=== PATIENT | female | born 1955 | race Caucasian/White ===

== ENCOUNTER → 2018-11-18 | Outpatient (CLI) | payer BC ==
--- NOTE | 2018-11-21 13:15 | XCELERA REPORT ---
[address] [address] Lower Extremity Venous Evaluation Procedure: A bilateral duplex scan of the lower extremity veins was performed. The evaluation included responses to compression and other maneuvers with patient in the supine and standing positions to assess venous insufficiency. Right Sided Venous Evaluation Deep venous system evaluation shows patent veins with no obstruction or significant reflux identified. Saphena Femoral junction: no reflux. Femoral vein reflux: no reflux. Greater Saphenous vein, Proximal thigh: reflux: no reflux. Greater Saphenous vein, Distal thigh: reflux: no reflux. Greater Saphenous vein, Proximal below knee: reflux: no reflux. One calf Perforators identified. 0.5 cms, no reflux. Left Sided Venous Evaluation Deep venous system evaluatiion shows patent veins with no obstruction or significant reflux identified. Sapheno Femoral junction: no reflux. Femoral vein reflux: no reflux. Greater Saphenous vein, Proximal thigh: reflux: no reflux. Greater Saphenous vein, Distal thigh: reflux: no reflux. Greater Saphenous vein, Proximal below knee: reflux: 1 second reflux.5.4 mm. No significant Perforators identified. Interpretation Summary No duplex evidence of DVT or obstruction in the bilateral lower extremities. No reflux, deep or superficial identified.. Name: ABIEL BELTRÁN Age: 63 yrs Gender: Female : 1955 Patient Status: Outpatient Patient Location: Study Date: 11/18/2018 11:04 AM Reason For Study: LT CALF ULCER Ordering Physician: PAM FAIRBANKS Performed By: Greg Arredondo : PAM FAIRBANKS > Carlo Arriaga
== END ==
LOC: SP 10:18
PROVIDERS: ATTEND Nurse Practitioner Family
DX: L97.222 Non-pressure chronic ulcer of left calf with fat layer exposed (principal)
CPT/HCPCS: 93925; 93970

== ENCOUNTER → 2018-12-02 | Outpatient (CLI) | payer BC ==
[2018-12-02 13:39] LABS: ABSOLUTE LYMPHOCYTES (AUTO) 0.7 10^3/uL (0.5-4.7); ABSOLUTE MONOCYTES (AUTO) 0.2 10^3/uL (0.1-1.4); ABSOLUTE NEUT (AUTO) 3.2 10^3/uL (1.7-8.2); BASOPHILS % (AUTO) 0.3 % (0-2); EOSINOPHILS % (AUTO) 0.6 % (0-6); HEMATOCRIT 42.5 % (36.0-47.0); HEMOGLOBIN 14.6 g/dL (12.0-15.5); MEAN CORPUSCULAR HEMOGLOBIN 33.7 pg (27.0-33.4); MEAN CORPUSCULAR HGB CONC 34.2 g/dL (32.0-36.0); MEAN CORPUSCULAR VOLUME 99 fl (80-97); MONOCYTES % (AUTO) 3.9 % (3-13); PLATELET COUNT 180 10^3/uL (150-450); RED BLOOD COUNT 4.32 10^6/uL (3.72-5.28); RED CELL DISTRIBUTION WIDTH 14.1 % (11.5-14.0); SEGMENTED NEUTROPHILS % (AUTO) 78.2 % (42-78); TOTAL CELLS COUNTED % (AUTO) 100 %; WHITE BLOOD COUNT 4.1 10^3/uL (4.0-10.5)
[2018-12-02 14:15] LABS: ALANINE AMINOTRANSFERASE 32 U/L (9-52); ALBUMIN 3.4 g/dL (3.5-5.0); ALKALINE PHOSPHATASE 261 U/L (38-126); ANION GAP 7 (5-19); ASPARTATE AMINO TRANSFERASE 69 U/L (14-36); BILIRUBIN,TOTAL 2.1 mg/dL (0.2-1.3); BLOOD UREA NITROGEN 20 mg/dL (7-20); C-REACTIVE PROTEIN 6.5 mg/L (<10.0); CALCIUM 8.8 mg/dL (8.4-10.2); CARBON DIOXIDE 28 mmol/L (22-30); CHLORIDE 105 mmol/L (98-107); GLUCOSE 128 mg/dL (75-110); POTASSIUM 4.6 mmol/L (3.6-5.0); SODIUM 140.4 mmol/L (137-145); TOTAL PROTEIN 8.9 g/dL (6.3-8.2)
[2018-12-02 14:23] LABS: ERYTHROCYTE SEDIMENTATION RATE 34 mm/hr (0-30)
== END ==
LOC: WC 12:38
PROVIDERS: ATTEND Nurse Practitioner Family
DX: L97.222 Non-pressure chronic ulcer of left calf with fat layer exposed (principal)
CPT/HCPCS: 36415; 80053; 85025; 85652; 86140

== ENCOUNTER → 2018-12-26 | Outpatient (CLI) | payer BC ==
[2018-12-26 12:56] LABS: ABSOLUTE EOSINOPHILS # (AUTO) 0.1 10^3/uL (0.0-0.6); ABSOLUTE LYMPHOCYTES (AUTO) 1.1 10^3/uL (0.5-4.7); ABSOLUTE MONOCYTES (AUTO) 0.5 10^3/uL (0.1-1.4); ABSOLUTE NEUT (AUTO) 3.4 10^3/uL (1.7-8.2); BASOPHILS % (AUTO) 0.7 % (0-2); EOSINOPHILS % (AUTO) 1.7 % (0-6); HEMATOCRIT 42.1 % (36.0-47.0); HEMOGLOBIN 14.4 g/dL (12.0-15.5); MEAN CORPUSCULAR HEMOGLOBIN 33.5 pg (27.0-33.4); MEAN CORPUSCULAR HGB CONC 34.3 g/dL (32.0-36.0); MEAN CORPUSCULAR VOLUME 98 fl (80-97); MONOCYTES % (AUTO) 9.3 % (3-13); PLATELET COUNT 149 10^3/uL (150-450); RED BLOOD COUNT 4.31 10^6/uL (3.72-5.28); RED CELL DISTRIBUTION WIDTH 13.5 % (11.5-14.0); SEGMENTED NEUTROPHILS % (AUTO) 66.3 % (42-78); TOTAL CELLS COUNTED % (AUTO) 100 %; WHITE BLOOD COUNT 5.1 10^3/uL (4.0-10.5)
[2018-12-26 13:21] LABS: ALANINE AMINOTRANSFERASE 48 U/L (9-52); ALBUMIN 3.3 g/dL (3.5-5.0); ALKALINE PHOSPHATASE 219 U/L (38-126); ANION GAP 8 (5-19); ASPARTATE AMINO TRANSFERASE 86 U/L (14-36); BILIRUBIN,TOTAL 2.3 mg/dL (0.2-1.3); BLOOD UREA NITROGEN 15 mg/dL (7-20); C-REACTIVE PROTEIN 9.9 mg/L (<10.0); CALCIUM 8.9 mg/dL (8.4-10.2); CARBON DIOXIDE 27 mmol/L (22-30); CHLORIDE 109 mmol/L (98-107); GLUCOSE 106 mg/dL (75-110); POTASSIUM 3.6 mmol/L (3.6-5.0); SODIUM 143.6 mmol/L (137-145); TOTAL PROTEIN 7.9 g/dL (6.3-8.2)
[2018-12-26 13:41] LABS: ERYTHROCYTE SEDIMENTATION RATE 26 mm/hr (0-30)
--- NOTE | 2018-12-26 15:21 | RADIOLOGY REPORT (SQ) ---
EXAM DESCRIPTION: TIBIA FIBULA LEFT COMPLETED DATE/TIME: 12/26/2018 12:57 pm REASON FOR STUDY: NON-PRESSURE CHRONIC ULCER OF LEFT CALF W FAT LAYER EXPOSED L97.222 NON-PRESSURE CHRONIC ULCER OF LEFT CALF W FAT LAYER I87.2 VENOUS INSUFFICIENCY (CHRONIC) (PERIPHERAL) COMPARISON: None. NUMBER OF VIEWS: Two views. TECHNIQUE: Two radiographic images acquired of the left tibia and fibula to include the knee and ank le in at least one projection. LIMITATIONS: None. FINDINGS: MINERALIZATION: Osteopenia. BONES: No acute fracture or dislocation. No worrisome bone lesions. SOFT TISSUES: There are vascular calcifications. No foreign body. OTHER: No other significant finding. IMPRESSION: No evidence of osteomyelitis. TECHNICAL DOCUMENTATION: JOB ID: [id number] [employer]- All Rights Reserved Reading location - IP/workstation name: [email or web address]
== END ==
LOC: WC 12:23
PROVIDERS: ATTEND Nurse Practitioner Family
DX: L97.222 Non-pressure chronic ulcer of left calf with fat layer exposed (principal); I87.2 Venous insufficiency (chronic) (peripheral)
CPT/HCPCS: 36415; 80053; 85025; 85652; 86140

== ENCOUNTER 2019-02-27 12:33 | Emergency (ER) | payer OTHER ==
--- NOTE | 2019-02-27 13:45 | ER Document Report ---
ED Medical Screen (RME) - General Chief Complaint: Leg Pain Stated Complaint: LEG WOUND Time Seen by Provider: 02/27/19 13:39 Primary Care Provider: CRISTINA DENNY PA-C [Primary Care Provider] - Follow up as needed TRAVEL OUTSIDE OF THE [place] IN LAST 30 DAYS: No - HPI Notes: 02/27/19 13:42 Patient is a 63-year-old female with history of venous stasis who presents complaining of issues with her chronic wounds left lower leg. Patient states that other areas are starting to open up is not sure if her wounds are healing appropriately. Patient states that she has been unable to follow-up with wound clinic due to insurance issues and has been going to the [facility]. She had another appointment recently, but had to reschedule due to provider going into labor. Patient states that she continues to have discharge and drainage associated. She has been doing daily dressing changes otherwise. Denies drug allergies. Denies MCCLAIN, fever, neck pain, URI, CP, SOB, Abd pain, dysuria, back pain. I have treated and performed a rapid initial assessment of this patient. A comprehensive ED assessment and evaluation of the patient, analysis of test results and completion of medical decision making process will be conducted by additional ED providers. PHYSICAL EXAMINATION: GENERAL: Well-appearing, well-nourished and in no acute distress. A&Ox4. Answers questions appropriately. Extremities: multiple open wounds left lower leg, some with mild erythema. + primarily serosanguineous discharge. 1+ pitting edema. Pulses 2+. N/V intact distal otherwise. NEUROLOGICAL: Normal speech, normal gait. PSYCH: Normal mood, normal affect. - Related Data Allergies/Adverse Reactions: No Known Allergies Allergy (Unverified 02/27/19 12:34) Past Medical History Past Surgical History: Reports: Hx Orthopedic Surgery - hip - Immunizations Hx Diphtheria, Pertussis, Tetanus Vaccination: Yes Physical Exam - Vital signs Vitals: Temp Pulse Resp BP Pulse Ox 98.5 F 83 16 121/67 94 02/27/19 12:39 02/27/19 12:39 02/27/19 12:39 02/27/19 12:39 02/27/19 12:39 Course - Vital Signs Vital signs: Temp Pulse Resp BP Pulse Ox 98.5 F 83 16 121/67 94 02/27/19 12:39 02/27/19 12:39 02/27/19 12:39 02/27/19 12:39 02/27/19 12:39 Doctor's Discharge - Discharge Referrals: CRISTINA DENNY PA-C [Primary Care Provider] - Follow up as needed
[2019-02-27 14:25] LABS: ABSOLUTE EOSINOPHILS # (AUTO) 0.3 10^3/uL (0.0-0.6); ABSOLUTE MONOCYTES (AUTO) 0.5 10^3/uL (0.1-1.4); SEGMENTED NEUTROPHILS % (AUTO) 61.1 % (42-78); TOTAL CELLS COUNTED % (AUTO) 100 %
[2019-02-27 14:30] LABS: ABSOLUTE NEUT (AUTO) 2.9 10^3/uL (1.7-8.2); BASOPHILS % (AUTO) 0.6 % (0-2); EOSINOPHILS % (AUTO) 6.9 % (0-6); HEMATOCRIT 41.3 % (36.0-47.0); LYMPHOCYTES % (AUTO) 21.7 % (13-45); MEAN CORPUSCULAR HEMOGLOBIN 32.7 pg (27.0-33.4); MEAN CORPUSCULAR HGB CONC 33.8 g/dL (32.0-36.0); MEAN CORPUSCULAR VOLUME 97 fl (80-97); MONOCYTES % (AUTO) 9.7 % (3-13); PLATELET COUNT 138 10^3/uL (150-450); RED BLOOD COUNT 4.26 10^6/uL (3.72-5.28); RED CELL DISTRIBUTION WIDTH 14.3 % (11.5-14.0); WHITE BLOOD COUNT 4.7 10^3/uL (4.0-10.5)
--- NOTE | 2019-02-27 14:41 | RADIOLOGY REPORT (SQ) ---
EXAM DESCRIPTION: TIBIA FIBULA LEFT COMPLETED DATE/TIME: 02/27/2019 2:29 pm REASON FOR STUDY: chronic wounds left lower leg COMPARISON: Left tibia and fibula 12/26/2018 NUMBER OF VIEWS: Two views. TECHNIQUE: Two radiographic images acquired of the left tibia and fibula to include the knee and ank le in at least one projection. LIMITATIONS: None. FINDINGS: MINERALIZATION: Osteopenic BONES: No acute fracture or dislocation. No worrisome bone lesions. SOFT TISSUES: No radiopaque foreign body. No worrisome soft tissue gas. There are superficial skin ulcers along the lower 3rd of the left lower leg. OTHER: No other significant finding. IMPRESSION: Soft tissue ulcers over the lower 3rd of the left lower leg. No retained radiopaque for eign body. No soft tissue gas. No underlying aggressive bony demineralization worrisome for osteomy jhonathan TECHNICAL DOCUMENTATION: JOB ID: [id number] [employer]- All Rights Reserved Reading location - IP/workstation name: [email or web address]
[2019-02-27 14:44] LABS: ALBUMIN 3.2 g/dL (3.5-5.0); ALKALINE PHOSPHATASE 165 U/L (38-126); ASPARTATE AMINO TRANSFERASE 92 U/L (14-36); BILIRUBIN,DIRECT 0.7 mg/dL (0.0-0.4); BILIRUBIN,TOTAL 1.9 mg/dL (0.2-1.3); BLOOD UREA NITROGEN 14 mg/dL (7-20); CALCIUM 8.6 mg/dL (8.4-10.2); CARBON DIOXIDE 32 mmol/L (22-30); CHLORIDE 106 mmol/L (98-107); GLUCOSE 93 mg/dL (75-110); POTASSIUM 4.5 mmol/L (3.6-5.0); TOTAL PROTEIN 8.1 g/dL (6.3-8.2)
[2019-02-27 14:45] LABS: ANION GAP 2 (5-19)
--- NOTE | 2019-02-27 15:18 | ER Document Report ---
ED General - General Chief Complaint: Leg Pain Stated Complaint: LEG WOUND Time Seen by Provider: 02/27/19 13:39 Primary Care Provider: [facility] [NO LOCAL MD] - Follow up in 3-5 days CRISTINA DENNY PA-C [NO LOCAL MD] - Follow up as needed Mode of Arrival: Ambulatory Information source: Patient, [facility] Records Notes: Patient is a 63-year-old female with history of venous stasis who presents complaining of issues with her chronic wounds left lower leg. Patient states that other areas are starting to open up is not sure if her wounds are healing appropriately. Patient states that she has been unable to follow-up with wound clinic due to insurance issues and has been going to the [facility]. She had another appointment recently, but had to reschedule due to provider going into labor. Patient states that she continues to have discharge and drainage associated. She has been doing daily dressing changes otherwise. Denies drug allergies. Denies MCCLAIN, fever, neck pain, URI, CP, SOB, Abd pain, dysuria, back pain. TRAVEL OUTSIDE OF THE [place] IN LAST 30 DAYS: No - HPI Onset: Other Onset/Duration: Gradual, Persistent Quality of pain: No pain Severity: None Pain Level: Denies Associated symptoms: denies: Chills, Fever, Nausea, Vomiting, Shortness of breath Exacerbated by: Denies Relieved by: Denies Similar symptoms previously: Yes Recently seen / treated by doctor: Yes - Related Data Allergies/Adverse Reactions: No Known Allergies Allergy (Unverified 02/27/19 12:34) Past Medical History - General Information source: Patient - Social History Smoking Status: Current Every Day Smoker Cigarette use (# per day): Yes - 10 Smoking Education Provided: Yes - Smoking cessation counseling was provided for 4 minutes at the bedside Frequency of alcohol use: None Lives with: Family, Spouse/Significant other Family History: Reviewed & Not Pertinent Patient has suicidal ideation: No Patient has homicidal ideation: No Renal/ Medical History: Denies: Hx Peritoneal Dialysis Past Surgical History: Reports: Hx Orthopedic Surgery - hip - Immunizations Hx Diphtheria, Pertussis, Tetanus Vaccination: Yes Review of Systems - Review of Systems Notes: REVIEW OF SYSTEMS: CONSTITUTIONAL : Denies fever, chills, or sweats. Denies recent illness. Denies weight loss, recent hospitalizations. EENT: Denies visual changes, eye pain. Denies sore throat, oral lesions, difficulty swallowing. CARDIOVASCULAR: Denies chest pain. Denies palpitations. Denies lower extremity edema. RESPIRATORY: Denies cough. Denies shortness of breath, wheezing. GASTROINTESTINAL: Denies abdominal pain or distention. Denies nausea, vomiting, or diarrhea. Denies blood in vomitus, stools, or per rectum. Denies black, tarry stools. Denies constipation. GENITOURINARY: Denies difficulty urinating, painful urination, frequency, blood in urine, or vaginal discharge. MUSCULOSKELETAL: Denies back or neck pain or stiffness. Denies joint pain or swelling. SKIN: + Multiple wounds to the left lower extremity. HEMATOLOGIC : Denies easy bruising or bleeding. LYMPHATIC: Denies swollen glands. NEUROLOGICAL: Denies confusion or altered mental status. Denies loss of consciousness. Denies dizziness or lightheadedness. Denies headache. Denies weakness or paralysis. Denies problems difficulty with ambulation, slurred speech. Denies sensory loss, numbness, or tingling. Denies seizures. PSYCHIATRIC: Denies anxiety or stress. Denies depression, suicidal ideation, or homicidal ideation. Denies visual or auditory hallucinations. Physical Exam - Vital signs Vitals: Temp Pulse Resp BP Pulse Ox 98.5 F 83 16 121/67 94 02/27/19 12:39 02/27/19 12:39 02/27/19 12:39 02/27/19 12:39 02/27/19 12:39 - Notes Notes: PHYSICAL EXAMINATION: GENERAL: Well-appearing, well-nourished and in no acute distress. HEAD: Atraumatic, normocephalic. EYES: Pupils equal round and reactive to light, extraocular movements intact, conjunctiva are normal. ENT: Nares patent, oropharynx clear without exudates. Moist mucous membranes. NECK: Normal range of motion, supple without lymphadenopathy LUNGS: Breath sounds clear to auscultation bilaterally and equal. No wheezes rales or rhonchi. HEART: Regular rate and rhythm without murmurs. Pulses intact throughout. ABDOMEN: Soft, nontender, nondistended abdomen. No guarding, no rebound. No masses appreciated. Female : deferred Musculoskeletal: Normal range of motion, no pitting or edema. No cyanosis. NEUROLOGICAL: Cranial nerves grossly intact. Normal speech, normal gait. Normal sensory, motor exams PSYCH: Normal mood, normal affect. SKIN: Left lower extremity with multiple open wounds. No purulent drainage, tenderness. Multiple wounds with granulation tissue. No foul-smelling discharge. Course - Re-evaluation Re-evalutation: Laboratory 02/27/19 02/27/19 14:15 14:15 WBC 4.7 RBC 4.26 Hgb 14.0 Hct 41.3 MCV 97 MCH 32.7 MCHC 33.8 RDW 14.3 H Plt Count 138 L Seg Neutrophils % 61.1 Lymphocytes % 21.7 Monocytes % 9.7 Eosinophils % 6.9 H Basophils % 0.6 Absolute Neutrophils 2.9 Absolute Lymphocytes 1.0 Absolute Monocytes 0.5 Absolute Eosinophils 0.3 Absolute Basophils 0.0 Sodium 140.1 Potassium 4.5 Chloride 106 Carbon Dioxide 32 H Anion Gap 2 L BUN 14 Creatinine 0.65 Est GFR ( Amer) > 60 Est GFR (Non-Af Amer) > 60 Glucose 93 Calcium 8.6 Total Bilirubin 1.9 H Direct Bilirubin 0.7 H Neonat Total Bilirubin Not Reportable Neonat Direct Bilirubin Not Reportable Neonat Indirect Bili Not Reportable AST 92 H ALT 41 Alkaline Phosphatase 165 H Total Protein 8.1 Albumin 3.2 L Tibia/Fibula X-Ray 02/27/19 13:42 IMPRESSION: Soft tissue ulcers over the lower 3rd of the left lower leg. No retained radiopaque foreign body. No soft tissue gas. No underlying aggressive bony demineralization worrisome for osteomyelitis Temp Pulse Resp BP Pulse Ox 98.5 F 83 16 121/67 94 02/27/19 12:39 02/27/19 12:39 02/27/19 12:39 02/27/19 12:39 02/27/19 12:39 02/27/19 15:19 63-year-old female with chronic venous stasis wounds to the left lower extremity presents with concern for worsening. Vital signs reviewed and within normal limits. Patient is afebrile, normotensive and in no acute distress. She does not appear toxic or dehydrated. Left lower extremity is significant for multiple ulcerations without associated erythema, purulent discharge. Patient's wounds were cleaned and dressed. She does state that she has an upcoming appointment with wound care in 1 week. Patient strongly advised to keep this appointment. Patient was discharged home in stable condition. Patient was evaluated and treated as appropriate for the patient's presenting symptoms and complaint, with consideration of any critical or life threatening conditions that may be associated with their obtained history and exam as noted above. All results were discussed with patient. Patient provided the opportunity to ask questions, and express concerns. Patient was educated on treatments based on their presumed diagnosis as noted above. At this time we will discharge the patient with return precautions and follow-up recommendations. Verbal discharge instructions given a the bedside. Medication warnings reviewed. Patient is in agreement with this plan and has verbalized understanding of return precautions. After careful consideration I feel that that patient can be safely discharged from the emergency department, they were advised to followup with a primary c are physician in 2-3 days. Dictation on this chart was performed using voice recognition software and may result in unintended grammatical, spelling, syntax or errors. - Vital Signs Vital signs: Temp Pulse Resp BP Pulse Ox 98.8 F 91 18 151/87 H 97 02/27/19 15:59 02/27/19 15:59 02/27/19 15:59 02/27/19 15:59 02/27/19 15:59 - Laboratory Result Diagrams: 02/27/19 14:15 02/27/19 14:15 Laboratory results interpreted by me: 02/27/19 02/27/19 14:15 14:15 RDW 14.3 H Plt Count 138 L Eosinophils % 6.9 H Carbon Dioxide 32 H Anion Gap 2 L Total Bilirubin 1.9 H Direct Bilirubin 0.7 H AST 92 H Alkaline Phosphatase 165 H Albumin 3.2 L - Diagnostic Test Radiology reviewed: Image reviewed, Reports reviewed Discharge - Discharge Clinical Impression: Venous stasis, Tobacco use disorder Wound of lower extremity Qualifiers: Encounter type: initial encounter Laterality: left Qualified Code(s): S81.802A - Unspecified open wound, left lower leg, initial encounter Condition: Good Disposition: HOME, SELF-CARE Instructions: Dressing Instructions for Open Wounds ([facility]) Additional Instructions: Follow up with your [id number] hours for further care or return to the ED IMMEDIATELY if symptoms worsen or you have any concerns. If you cannot afford to follow up with your primary care physician a list of low cost clinics have been provided at the end of your discharge papers as well. Most prescribed medications have multiple side effects. The safest thing to do is when filling your prescription speak to your pharmacist regarding possible interactions with your normal home medications and over the counter medications such as Ibuprofen, Tylenol, Benadryl. If you experience any symptoms that cause you discomfort or concern you should discontinue the medication immediately and return to the emergency room or call your primary care physician. Prescriptions: Sulfamethoxazole/Trimethoprim [Bactrim Ds Tablet] 1 each PO BID 7 Days #14 tablet Referrals: CRISTINA DENNY PA-C [NO LOCAL MD] - [facility] - Follow up in 3-5 days
[2019-02-27] MEDS ORDERED: SULFAMETHOXAZOLE/TRIMETHOPRIM 800-160 MG TABLET PO ONE (15:24)
[2019-02-27 16:00] VITALS: BP 151/87
[2019-02-27] MEDS ORDERED: HYDROCODONE/ACETAMINOPHEN 5-325 MG (6 TAB/ER DISP) PO PRN (16:03)
== END 2019-02-27 16:10 | disposition home or self-care (01) ==
LOC: ER 12:33
DX: I87.8 Other specified disorders of veins (principal); S81.802A Unspecified open wound, left lower leg, initial encounter; L08.9 Local infection of the skin and subcutaneous tissue, unspecified; F17.210 Nicotine dependence, cigarettes, uncomplicated; X58.XXXA Exposure to other specified factors, initial encounter
CPT/HCPCS: 36415; 80053; 85025; 99283; 99406

== ENCOUNTER → 2019-05-05 | Outpatient (CLI) | payer OTHER ==
--- NOTE | 2019-05-05 13:10 | RADIOLOGY REPORT (SQ) ---
EXAM DESCRIPTION: TIBIA FIBULA LEFT COMPLETED DATE/TIME: 05/05/2019 12:57 pm REASON FOR STUDY: NON-PRS CHRONIC ULCER OTH PRT LEFT FOOT W FAT LAYER EXPOSED L97.522 NON-PRS CHRON IC ULCER OTH PRT LEFT FOOT W FAT LAYER I87.312 CHRONIC VENOUS HYPERTENSION W ULCER OF L LOW EXTREM COMPARISON: 02/27/2019 NUMBER OF VIEWS: Two views. TECHNIQUE: Two radiographic images acquired of the left tibia and fibula to include the knee and ank le in at least one projection. LIMITATIONS: None. FINDINGS: MINERALIZATION: Normal. BONES: No acute fracture, erosions or destruction of bone. Plantar calcaneal spur. SOFT TISSUES: External bandage dressing anterior left lower extremity. The patient has a known hist ory of superficial skin ulcers along the lower third of the left lower extremity. OTHER: Degenerative changes at the knee, stable findings. IMPRESSION: 1. No significant interval changes since the prior examination dated 02/27/2019. No acut e osseous findings. TECHNICAL DOCUMENTATION: JOB ID: [id number] [employer]- All Rights Reserved Reading location - IP/workstation name: [email or web address]
[2019-05-05 13:30] LABS: ABSOLUTE EOSINOPHILS # (AUTO) 0.2 10^3/uL (0.0-0.6); ABSOLUTE LYMPHOCYTES (AUTO) 1.3 10^3/uL (0.5-4.7); ABSOLUTE MONOCYTES (AUTO) 0.6 10^3/uL (0.1-1.4); ABSOLUTE NEUT (AUTO) 3.7 10^3/uL (1.7-8.2); BASOPHILS % (AUTO) 0.7 % (0-2); EOSINOPHILS % (AUTO) 3.7 % (0-6); HEMATOCRIT 41.1 % (36.0-47.0); HEMOGLOBIN 13.9 g/dL (12.0-15.5); LYMPHOCYTES % (AUTO) 21.6 % (13-45); MEAN CORPUSCULAR HEMOGLOBIN 32.9 pg (27.0-33.4); MEAN CORPUSCULAR HGB CONC 33.9 g/dL (32.0-36.0); MEAN CORPUSCULAR VOLUME 97 fl (80-97); MONOCYTES % (AUTO) 10.5 % (3-13); PLATELET COUNT 119 10^3/uL (150-450); RED BLOOD COUNT 4.24 10^6/uL (3.72-5.28); RED CELL DISTRIBUTION WIDTH 14.2 % (11.5-14.0); SEGMENTED NEUTROPHILS % (AUTO) 63.5 % (42-78); TOTAL CELLS COUNTED % (AUTO) 100 %; WHITE BLOOD COUNT 5.8 10^3/uL (4.0-10.5)
[2019-05-05 13:57] LABS: ALBUMIN 3.5 g/dL (3.5-5.0); ALKALINE PHOSPHATASE 199 U/L (38-126); ANION GAP 5 (5-19); ASPARTATE AMINO TRANSFERASE 88 U/L (14-36); BILIRUBIN,DIRECT 0.9 mg/dL (0.0-0.4); BILIRUBIN,TOTAL 2.4 mg/dL (0.2-1.3); BLOOD UREA NITROGEN 22 mg/dL (7-20); CALCIUM 8.9 mg/dL (8.4-10.2); CARBON DIOXIDE 31 mmol/L (22-30); CHLORIDE 103 mmol/L (98-107); GLUCOSE 87 mg/dL (75-110); POTASSIUM 3.9 mmol/L (3.6-5.0); TOTAL PROTEIN 8.9 g/dL (6.3-8.2)
[2019-05-05 14:01] LABS: C-REACTIVE PROTEIN < 5.0 mg/L (<10.0)
[2019-05-05 14:10] LABS: ERYTHROCYTE SEDIMENTATION RATE 27 mm/hr (0-30)
== END ==
LOC: WC 12:29
PROVIDERS: ATTEND Nurse Practitioner Family
DX: I87.312 Chronic venous hypertension (idiopathic) with ulcer of left lower extremity (principal); L97.522 Non-pressure chronic ulcer of other part of left foot with fat layer exposed
CPT/HCPCS: 36415; 80053; 85025; 85652; 86140

== ENCOUNTER 2019-12-07 18:14 | Emergency (ER) | payer MEDICARE, OTHER ==
--- NOTE | 2019-12-07 19:30 | RADIOLOGY REPORT (SQ) ---
EXAM DESCRIPTION: HIP LEFT AP/LATERAL IMAGES COMPLETED DATE/TIME: 12/07/2019 6:06 pm REASON FOR STUDY: fall last month, pain with ambulation, hx replacement COMPARISON: None. NUMBER OF VIEWS: Two views. TECHNIQUE: AP pelvis and additional frog-leg view of the left hip. LIMITATIONS: None. FINDINGS: MINERALIZATION: Osteopenia. LEFT HIP: Left hip arthroplasty with components in good alignment. No evidence of hardware fracture, loosening or subsidence. RIGHT HIP: No fracture or dislocation. No worrisome bone lesions. PUBIS AND ISCHIUM: No fracture. PELVIS: No fracture. SACRUM: No fracture or dislocation. No worrisome bone lesions. LOWER LUMBAR SPINE: Spondylosis and degenerative disc disease. SOFT TISSUES: No findings. OTHER: No other significant finding. IMPRESSION: Left hip arthroplasty without evidence of hardware complication. No acute fracture or d islocation. Moderate osteopenia. TECHNICAL DOCUMENTATION: JOB ID: [id number] [employer]- All Rights Reserved Reading location - IP/workstation name: [email or web address]
--- NOTE | 2019-12-07 19:31 | RADIOLOGY REPORT (SQ) ---
EXAM DESCRIPTION: KNEE LEFT 4 VIEW IMAGES COMPLETED DATE/TIME: 12/07/2019 6:06 pm REASON FOR STUDY: fall last month, pain with ambulation COMPARISON: None. NUMBER OF VIEWS: Four views. TECHNIQUE: AP, lateral, and both oblique radiographic images acquired of the left knee. LIMITATIONS: None. FINDINGS: MINERALIZATION: Osteopenia. BONES: No acute fracture or cortical disruption. Marginal osteophytes, subchondral sclerosis and cys tic change at all 3 compartments. No lytic or blastic bone lesion. JOINT: No intra-articular loose body or chondrocalcinosis. No joint effusion. SOFT TISSUES: No soft tissue swelling. No radio-opaque foreign body. OTHER: No other significant finding. IMPRESSION: No acute fracture or dislocation of the left knee. Moderate to severe tricompartmental osteoarthritis. TECHNICAL DOCUMENTATION: JOB ID: [id number] [employer]- All Rights Reserved Reading location - IP/workstation name: [email or web address]
[2019-12-07] MEDS ORDERED: ACETAMINOPHEN 325 MG TABLET PO ONE (20:51)
--- NOTE | 2019-12-07 20:54 | ER Document Report ---
HPI - HPI Time Seen by Provider: 12/07/19 20:05 Pain Level: 3 Context: Patient is a 64-year-old female presents emergency department with a chief complaint of left knee and hip pain. About a month ago, the patient ended up falling. According to the patient, she sustained a mechanical fall and slipped on a rug. Patient had been drinking alcohol today, according to the nurses note. Patient has history of a left hip replacement. Patient uses a cane to walk. She has not seen an orthopedic doctor or a regular doctor. Patient has history of DVTs and venous stasis ulcers in the past. Denies any calf pain. Only states the pain is in the joint. Patient states that she goes to the wound clinic for her's venous stasis ulcers which are healing well. Denies any shortness of breath or difficulty breathing. - ROS Systems Reviewed and Negative: Yes All other systems reviewed and negative - CONSTITUTIONAL Constitutional: DENIES: Fever, Chills - CARDIOVASCULAR Cardiovascular: DENIES: Chest pain - RESPIRATORY Respiratory: DENIES: Trouble Breathing, Coughing - GASTROINTESTINAL Gastrointestinal: DENIES: Abdominal Pain, Nausea, Patient vomiting - REPRODUCTIVE Reproductive: DENIES: : - MUSCULOSKELETAL Musculoskeletal: REPORTS: Extremity pain - Left hip, left knee - DERM Skin Color: Normal Skin Problems: None Past Medical History - General Information source: Patient - Social History Smoking Status: Current Every Day Smoker Chew tobacco use (# tins/day): No Frequency of alcohol use: Heavy Drug Abuse: None Family History: Reviewed & Not Pertinent Patient has homicidal ideation: No Renal/ Medical History: Denies: Hx Peritoneal Dialysis Past Surgical History: Reports: Hx Orthopedic Surgery - left hip x2 replacement - Immunizations Hx Diphtheria, Pertussis, Tetanus Vaccination: Yes Vertical Provider Document - CONSTITUTIONAL Agree With Documented VS: Yes Exam Limitations: No Limitations General Appearance: No Apparent Distress, Other - Disheveled - INFECTION CONTROL TRAVEL OUTSIDE OF THE [place] IN LAST 30 DAYS: No - HEENT HEENT: Atraumatic, Normocephalic, PERRLA - NECK Neck: Normal Inspection - RESPIRATORY Respiratory: Breath Sounds Normal, No Respiratory Distress - CARDIOVASCULAR Cardiovascular: Regular Rate, Regular Rhythm Pulses: Normal: Radial - BACK Back: Normal Inspection. negative: CVA Tenderness-Right, CVA Tenderness-Left - MUSCULOSKELETAL/EXTREMETIES Musculoskeletal/Extremeties: FROM, Tender - Left knee and left hip, Edema - Left knee. negative: Eccymosis - NEURO Level of Consciousness: Awake, Alert, Appropriate Motor/Sensory: No Motor Deficit, No Sensory Deficit - DERM Integumentary: Warm, Dry, No Rash Course - Re-evaluation Re-evalutation: 12/07/19 21:05 Patient offered crutches. Patient refused. No evidence of a septic joint. Patient is able to move knee and hip joint with only slight difficulty. Patient will follow-up with orthopedics. Dorsalis pedis 2+. Refill less than 3 seconds. Stasis wounds are healed. Follow-up precautions were given. Verbal discharge instructions were given to the patient. They verbalized understanding. They are stable for discharge. - Vital Signs Vital signs: Temp Pulse Resp BP Pulse Ox 98.2 F 124 H 138/89 H 92 12/07/19 18:35 12/07/19 18:19 12/07/19 18:19 12/07/19 18:19 Discharge - Discharge Clinical Impression: Left hip pain Left knee pain Qualifiers: Chronicity: acute Qualified Code(s): M25.562 - Pain in left knee Osteoarthritis Qualifiers: Osteoarthritis location: knee Osteoarthritis type: unspecified Laterality: left Qualified Code(s): M17.12 - Unilateral primary osteoarthritis, left knee Osteopenia Qualifiers: Osteopenia location: hip Laterality: left Qualified Code(s): M85.852 - Other specified disorders of bone density and structure, left thigh Condition: Stable Disposition: HOME, SELF-CARE Instructions: Use of Crutches ([facility]), Ice & Elevation ([facility]) Additional Instructions: You are seen today in the emergency department for left knee pain after a fall a month ago. Please continue to take Tylenol 1000 mg every 6 hours as needed for your pain. Please do not drink alcohol to help with your pain. Please follow- up with orthopedics in regards to this visit. Rest and elevate your knee. Use the crutches. Prescriptions: Hydrocodone/Acetaminophen [Orient 5-325 mg Tablet] 1 tab PO Q6 PRN #6 tablet PRN Reason: Forms: Return to Work Referrals: NORMAN MADERA MD [ACTIVE STAFF] - Follow up in 1 week GENE CASAS MD [ACTIVE PROVISIONAL STAFF] - Follow up in 1 week WESTON,ESTEE W JR, DO [ACTIVE PROVISIONAL STAFF] - Follow up in 1 week
[2019-12-07 21:19] VITALS: BP 154/107
== END 2019-12-07 21:28 | disposition home or self-care (01) ==
LOC: ER 18:14
DX: M17.12 Unilateral primary osteoarthritis, left knee (principal); M85.852 Other specified disorders of bone density and structure, left thigh; M25.562 Pain in left knee; M25.552 Pain in left hip; W19.XXXA Unspecified fall, initial encounter; W01.0XXA Fall on same level from slipping, tripping and stumbling without subsequent striking against object, initial encounter; Z96.642 Presence of left artificial hip joint; Z86.718 Personal history of other venous thrombosis and embolism; F17.200 Nicotine dependence, unspecified, uncomplicated
CPT/HCPCS: 99283

== ENCOUNTER 2020-06-18 00:27 | Inpatient (IN) | payer MEDICARE, OTHER ==
[2020-06-18] MEDS ORDERED: DEXTROSE 50%-WATER 25 GM/50 ML DISP.SYRIN IV ONE ×4 (00:33→03:40)
[2020-06-18] MEDS ORDERED: NALOXONE HCL INJ/PF 0.4 MG/1 ML SDV IV ONE (01:03)
--- NOTE | 2020-06-18 01:14 | ER Document Report ---
ED General - General Chief Complaint: Weakness Stated Complaint: WEAKNESS Time Seen by Provider: 06/18/20 00:58 Primary Care Provider: CLIFF MCKEE MD [Primary Care Provider] - Follow up as needed TRAVEL OUTSIDE OF THE [place] IN LAST 30 DAYS: No - HPI Context: This is a 64-year-old female with a history of tobacco abuse, IV drug abuse, chronic leg ulcers due to venous stasis that presents to the emergency department for evaluation of altered mental status. Patient's roommate lives with patient in a trailer and stated to EMS that she was not acting like herself. EMS reports that when they arrived at the scene, the patient was sitting on the toilet, and somewhat of a stupor. There was no evidence of a fall or trauma. EMS checked patient's blood sugar and found it was 25. They have were able to get peripheral access and give the patient a bolus of D10W. There is a check the patient's blood sugar several times in route and noted that it never got above 61 and got as low as 45. The roommate was uncertain if the patient has any history of insulin dependent diabetes. Patient's mental status is altered and she is not able to relate history. Patient does have a history of IV drug abuse. A 18-gauge IV was placed in the patient upon arrival to the ED and an amp of D50 was given without much change in mental status on part of the patient. This was shortly followed by 0.4 mg of Narcan which seems to had a positive effect, patient is now moving lower extremities and is speaking, however incoherently. Patient's rectal temp on arrival is 93.2, the patient is being placed in a trauma room, being put on a bear hugger, and is receiving a bolus of LR and a D 10 W drip at a rate of 100 mL an hour has been ordered. Patient's speech is incoherent and issues are not able to relate any history at this time. This MD is unable to gain any more information about events leading up to EMS arrival at her home. Associated symptoms: Other - Unable to obtain Exacerbated by: Other - Unable to obtain Relieved by: Other - Patient is becoming more active and alert with Narcan - Related Data Allergies/Adverse Reactions: No Known Allergies Allergy (Verified 12/07/19 18:34) Past Medical History - General Information source: Emergency Med Personnel - Social History Smoking Status: Current Every Day Smoker Frequency of alcohol use: Unknown Drug Abuse: Other - Unknown Lives with: Other - Remain Family History: Reviewed & Not Pertinent Renal/ Medical History: Denies: Hx Peritoneal Dialysis Past Surgical History: Reports: Hx Orthopedic Surgery - left hip x2 replacement - Immunizations Hx Diphtheria, Pertussis, Tetanus Vaccination: Yes Review of Systems - Review of Systems -: Yes ROS unobtainable due to patient's medical condition Physical Exam - Notes Notes: CONSTITUTIONAL [Vital signs reviewed, Patient appears very lethargic and has garbled speech. HEAD [Atraumatic, Normocephalic.] EYES [Eyes are normal to inspection, No discharge from eyes, Extraocular muscles intact, Sclera are normal, Conjunctiva are normal. Pupils are 2 mm in diameter and equal] ENT [External ears normal to inspection, Nose examination normal, Mouth normal to inspection.] NECK [Normal ROM, No jugular venous distention, No meningeal signs, ] RESPIRATORY CHEST [Chest is nontender, Breath sounds normal, No respiratory distress.] CARDIOVASCULAR [RRR, No murmurs, Normal S1 S2, No rub, No gallop.] ABDOMEN [Abdomen is nontender, No pulsatile masses, No other masses, Bowel sounds normal, No distension, No peritoneal signs, No hernias.] BACK [There is no CVA Tenderness, There is no tenderness to palpation, Normal ins pection.] UPPER EXTREMITY [Inspection normal, No cyanosis, No clubbing, No edema, LOWER EXTREMITY , No cyanosis, No clubbing, No edema, No calf tenderness, NEURO [No focal motor deficits, No focal sensory deficits,.] SKIN [Skin is warm, Skin is dry, lower extremity exam significant for skin changes consistent with chronic venous stasis.] PSYCHIATRIC Patient has confused and does not speak coherently. It is difficult to obtain a accurate or adequate psychiatric exam at this time. ] Course - Re-evaluation Re-evalutation: 06/18/20 02:46 Patient was discussed with MARTHA Shaikh with gas or water meter installer service at 0215 hrs. He came to the ED, examined the patient, excepted the patient for admission to the ICU and took over care of the patient including intubation of the patient and placement of a right IJ. - Laboratory Result Diagrams: 06/18/20 00:37 06/18/20 00:37 Laboratory results interpreted by me: 06/18/20 06/18/20 06/18/20 00:37 00:37 00:37 ABG pH ABG HCO3 ABG Total CO2 ABG O2 Saturation Sodium 136.0 L Potassium 5.9 H Carbon Dioxide 7 L* Anion Gap 28 H BUN 37 H Creatinine 4.42 H Est GFR ( Amer) 12 L Est GFR (MDRD) Non-Af 10 L Glucose 48 L POC Glucose 54 L Total Bilirubin 6.1 H Direct Bilirubin 5.0 H AST 559 H ALT 116 H Alkaline Phosphatase 315 H Ammonia 471.7 H Albumin 2.2 L 06/18/20 06/18/20 01:12 01:20 ABG pH 6.74 L* ABG HCO3 5.9 L ABG Total CO2 7.2 L ABG O2 Saturation 78.8 L Sodium Potassium Carbon Dioxide Anion Gap BUN Creatinine Est GFR ( Amer) Est GFR (MDRD) Non-Af Glucose POC Glucose 121 H Total Bilirubin Direct Bilirubin AST ALT Alkaline Phosphatase Ammonia Albumin - Diagnostic Test Radiology reviewed: Reports reviewed - EKG Interpretation by Me Additional EKG results interpreted by me: 06/18/20 02:49 EKG obtained on 06/18/2020 at 0128 hrs. was interpreted by this MD. Findings sinus rhythm, rate 82, intervals between QRS complexes appear normal and regular, there is significant artifact that makes it difficult to see the P waves on this EKG, the QRS complex appears narrow and grossly unremarkable, QTC is 514, there are no obvious patterns of ST segment elevation, depression or reciprocal changes seen to suggest acute myocardial ischemia, infarction or other ACS. There is no prior EKG available for comparison. Impression: sinus rhythm with nonspecific ST segments. - Consults martha shaikh, [employer] [facility] water [employer] installer service Time consulted: 02:15 Reason for consultation: 06/18/20 02:52 Altered mental status, hypoglycemia, hypothermia, hypotension, severe lactic acidosis, hyperammonemia, hyperkalemia, renal insufficiency Consulted provider: other - He came to the ED, accepted patient for admission and took over care of patient in a expeditious manner Critical Care Note - Critical Care Note Total time excluding time spent on procedures (mins): 70 - Patient has altered mental status, hypoglycemia, hypothermia, acute renal failure, lactic acidosis, abnormal liver function tests, abnormal electrolytes; I am managed this patient for the first 70 minutes for these issues until the gas or water meter installer came to the ED and took over the patient's care Discharge - Discharge Clinical Impression: Hypoglycemia, History of intravenous drug abuse, Hyperammonemia, Hyperkalemia, Acidosis, metabolic, Abnormal LFTs (liver function tests) Hypothermia Qualifiers: Encounter type: initial encounter Qualified Code(s): T68.XXXA - Hypothermia, initial encounter Altered mental status Qualifiers: Altered mental status type: unspecified Qualified Code(s): R41.82 - Altered mental status, unspecified Hypotension Qualifiers: Hypotension type: unspecified hypotension type Qualified Code(s): I95.9 - Hypotension, unspecified Condition: Critical Disposition: ADMITTED INPATIENT Admitting Provider: Jorje (Cosmetologist) Unit Admitted: ICU Referrals: CLIFF MCKEE MD [Primary Care Provider] - Follow up as needed
[2020-06-18 01:36] LABS: ARTERIAL BLOOD H2CO3 1.34 mmol/L (1.05-1.35); ARTERIAL BLOOD HCO3 5.9 mmol/L (20-24); ARTERIAL BLOOD O2 SATURATION 78.8 % (94-98); ARTERIAL BLOOD PCO2 44.5 mmHg (35-45); ARTERIAL BLOOD PO2 81.9 mmHg (80-100); ARTERIAL BLOOD TOTAL CO2 7.2 mmol/L (21-25)
[2020-06-18 01:46] LABS: ALBUMIN 2.2 g/dL (3.5-5.0); ALKALINE PHOSPHATASE 315 U/L (38-126); ASPARTATE AMINO TRANSFERASE 559 U/L (14-36); BILIRUBIN,TOTAL 6.1 mg/dL (0.2-1.3); BLOOD UREA NITROGEN 37 mg/dL (7-20); CALCIUM 9.1 mg/dL (8.4-10.2); CHLORIDE 101 mmol/L (98-107); POTASSIUM 5.9 mmol/L (3.6-5.0); TOTAL PROTEIN 6.3 g/dL (6.3-8.2)
[2020-06-18] MEDS ORDERED: DEXTROSE 10%-WATER 1,000 ML IV ONE (01:46)
[2020-06-18 01:47] LABS: GLUCOSE 48 mg/dL (75-110)
[2020-06-18 01:50] LABS: HEMATOCRIT 40.2 % (36.0-47.0); MEAN CORPUSCULAR HEMOGLOBIN 34.5 pg (27.0-33.4); MEAN CORPUSCULAR HGB CONC 29.3 g/dL (32.0-36.0); MEAN CORPUSCULAR VOLUME 118 fl (80-97); RED BLOOD COUNT 3.41 10^6/uL (3.72-5.28); RED CELL DISTRIBUTION WIDTH 17.6 % (11.5-14.0); WHITE BLOOD COUNT 20.7 10^3/uL (4.0-10.5)
[2020-06-18 01:56] LABS: ANION GAP 28 (5-19)
[2020-06-18 02:03] LABS: CARBON DIOXIDE 7 mmol/L (22-30)
[2020-06-18 02:03] LABS: ARTERIAL BLOOD FIO2 100%; ARTERIAL BLOOD PH 6.74 (7.35-7.45)
[2020-06-18] MEDS ORDERED: SODIUM BICARBONATE 4.2% INJ (2.5 MEQ/5 ML) VIAL INJ ONE (02:08)
[2020-06-18 02:09] LABS: URINE BARBITURATES SCREEN NEGATIVE; URINE BENZODIAZEPINES SCREEN NEGATIVE; URINE COCAINE SCREEN NEGATIVE; URINE MARIJUANA (THC) SCREEN NEGATIVE; URINE METHADONE SCREEN NEGATIVE; URINE PHENCYCLIDINE SCREEN NEGATIVE
[2020-06-18] MEDS ORDERED: ETOMIDATE INJ/PF 20 MG/10 ML SDV IV ONE ×2 (02:09→10:56)
[2020-06-18] MEDS ORDERED: SUCCINYLCHOLINE CHLORIDE INJ 200 MG/10 ML VIAL IV ONE (02:10)
[2020-06-18] MEDS ORDERED: SODIUM BICARBONATE 8.4% INJ 50 MEQ/50 ML DISP.SYRIN IV ONE ×6 (02:17→16:00)
[2020-06-18 02:25] LABS: PLATELET COUNT 67 10^3/uL (150-450)
--- NOTE | 2020-06-18 02:26 | RADIOLOGY REPORT (SQ) ---
CHEST X-RAY 1 VIEW on 06/18/2020 at 1:45 AM CLINICAL INDICATION: Altered mental status COMPARISON: None FINDINGS: Mild cardiomegaly is noted. There are bilateral interstitial opacities with also some airspace opacity in the right lung base consistent with edema and/or pneumonia, differential diagnosis would include viral infections. Vascular calcification is noted in the aorta. No bony abnormality is noted. IMPRESSION: Bilateral edema and/or pneumonia, differential diagnosis would include viral infections.
[2020-06-18 02:49] LABS: SALICYLATE 1.6 mg/dL (2.0-20.0)
[2020-06-18 02:50] LABS: ABSOLUTE LYMPHOCYTES# (MANUAL) 2.7 10^3/uL (0.5-4.7); ABSOLUTE MONOCYTES # (MANUAL) 1.4 10^3/uL (0.1-1.4); ANISOCYTOSIS 1+; BAND NEUTROPHILS % (MANUAL) 5 % (3-5); BASOPHILS % (MANUAL) 0 % (0-2); EOSINOPHILS % (MANUAL) 0 % (0-6); LYMPHOCYTES % (MANUAL) 13 % (13-45); MONOCYTES % (MANUAL) 7 % (3-13); PLATELET COMMENT DECREASED; SEGMENTED NEUTROPHILS % (MAN) 75 % (42-78); TOTAL CELLS COUNTED 100; TOXIC VACUOLATION PRESENT
[2020-06-18] MEDS ORDERED: MIDAZOLAM 2 MG/2 ML INJ ONE (02:52)
[2020-06-18 02:57] LABS: BURR CELLS 1+; POLYCHROMASIA SLIGHT
[2020-06-18 03:01] LABS: ACETAMINOPHEN < 10 ug/mL (10-30); HEMOGLOBIN 11.8 g/dL (12.0-15.5)
[2020-06-18] MEDS ORDERED: NORMAL SALINE 1000 ML 1,000 ML IV PRN (03:39)
[2020-06-18] MEDS ORDERED: GLUCAGON,HUMAN RECOMB 1 MG INJ SUBCUT PRN (04:02)
[2020-06-18] MEDS ORDERED: DEXTROSE 40% GEL 15 GM TUBE NG PRN ×2 (04:02)
[2020-06-18] MEDS ORDERED: DEXTROSE 50%-WATER 25 GM/50 ML DISP.SYRIN IV PRN ×2 (04:02)
[2020-06-18] MEDS ORDERED: INSULIN REG, HUMAN 100 UNIT/ML 3 ML VIAL (PYX) ONE (04:08)
[2020-06-18] MEDS ORDERED: PHARMACY COMMUNICATION ORDER MC NR (04:15)
--- NOTE | 2020-06-18 04:21 | RADIOLOGY REPORT (SQ) ---
EXAM DESCRIPTION: Site: CHEST SINGLE VIEW RP: XR CHEST 1 VIEW CLINICAL HISTORY: 64 years Female; post intubation ; FINDINGS: AP chest at 0330. Since earlier tonight at 0145, endotracheal tube has been placed, 3 cm above lisa. Right IJ line tip in the upper SVC. Enteric tube tip is at the level the gastroesophageal junction. Proximal sidehole is likely in the distal esophagus. There is moderate gaseous distention of the visualized portions of the stomach. Bilateral interstitial infiltrates are again noted. No pneumothorax or significant pleural effusion. IMPRESSION: 1. Lines as described 2. Consider advancing the enteric tube at least 6 cm.
--- NOTE | 2020-06-18 04:28 | Operative Report ---
Bedside Procedure - History of Present Illness History of Present Illness: Procedure: Central line placement Indication: Vasoactive medications, IV fluids, blood draws. Procedure melt room operator: MARTHA Shaikh Attending physician: Dr. Recinos Consent: The procedure was performed emergently and the permission was implied because of the emergent nature. Procedure summary: The [facility] central line insertion practice form was completed by RN. A timeout was performed. My hands were washed immediately prior to the pro cedure. I wore surgical cap, mask with protective eyewear, full gown and sterile gloves throughout the procedure. The patient was placed in Trendelenburg position. Right chest region was prepped using chlorhexidine scrub and draped in sterile fashion using a full drape. Sterile probe cover was placed on ultrasound probe. The medial and lateral heads of the sternocleidomastoid muscle were identified as was the carotid pulse. The internal jugular vein was identified using ultrasound. Anesthesia was achieved over the vein using 4 cc of 1% lidocaine. Using real-time out of plane guidance, the introducer needle was inserted into the internal jugular vein under direct ultrasound visualization. Venous blood was withdrawn. The syringe was removed and a guidewire was advanced into the introducer needle. The guidewire was visualized in the internal jugular vein by ultrasound. A small incision was made at the skin surface with a scalpel and the introducer needle was exchanged for a dilator over the guidewire. After appropriate dilation was obtained, the dilator was exchanged over a wire for a 7 Malay, 20 cm central venous catheter. The wire was removed and the catheter was sutured in place at 15 cm. A IO patch was placed and a sterile Sorbaview shield was placed over the catheter at the insertion site. The patient tolerated the procedure well without any hemodynamic compromise. At time of procedure completion, all ports aspirated and flushed properly. Postprocedure x-ray shows central line in proper place. Estimated blood loss is approximately 10 cc. Indication for Procedure: Vasoactive medications, blood draws. Provider: DIO CHAPIN - Central Line Right Internal jugular Time completed: 03:00 Consent obtained: No - The procedure was performed emergently and the permission was implied. Central line pre-insertion: Sterile PPE donned, Chloraprep applied, Sterile drapes applied Central line lumen type: Triple Anesthetic type: 1% Lidocaine mL's of anesthesia: 3 Ultrasound guided: Yes CM at insertion site: 15 Line secured with sutures: Yes Central line post-insertion: Blood return from lumens, Biopatch applied, Sutured, Sterile dressing applied, Position confirmed w/ CXR Number of attempts: 2 Complications: No
--- NOTE | 2020-06-18 04:30 | Operative Report ---
Bedside Procedure - History of Present Illness History of Present Illness: Indication: Respiratory Failure Procedure fur trimming machine operator: MARTHA Shaikh Attending physician: Dr. Recinos Consent: The procedure was performed emergently and the permission was implied because of the emergent nature. Procedure summary: A timeout was performed. My hands were washed immediately prior to the procedure. I were surgical cap, mask with protective eyewear, gown and gloves throughout the procedure. The patient was placed on a library monitor including continuous pulse oximetry. Rapid sequence intubation was conducted. The patient received 20 mg of etomidate for induction. Cricoid pressure was maintained from time induction agent was given the time of cuff balloon inflation. Using a MAC 3 laryngoscope with glide scope and a size of 1.5 endotracheal tube with stylette, the patient was intubated on the second attempt. The stylette was removed and the cuff balloon was inflated. Appropriate endotracheal tube position was confirmed by direct visualization of vocal cord passage, CO2 colorimetric indicator and symmetric breath sounds. The tube was secured at 22 centimeters at the lips. Post intubation chest x-ray confirms ET tube at 2 centimeters above the lisa. Indication for Procedure: Respiratory failure Date: 06/18/20 Provider: DIO CHAPIN
[2020-06-18] MEDS ORDERED: PROPOFOL 1,000 MG/100 ML INFUS..BTL IV PRN (04:51)
[2020-06-18] MEDS ORDERED: PROPOFOL 1,000 MG/100 ML INFUS..BTL IV ONE (04:53)
--- NOTE | 2020-06-18 05:15 | CRITICAL CARE ADMISSION REPORT ---
HPI Date:: 06/18/20 Time:: 04:30 Reason for ICU Reason:: Acute respiratory failure Admission Date/Time & PCP: Admission Date/Time: 06/18/20 03:36 Primary Care Provider: CLIFF MCKEE MD HPI: 64-year-old female with a history of IVDA, hep C and venous stasis ulcers. Patient was found at home by her roommate who stated that she had an altered mental status. Upon arrival of EMS, blood glucose level was 25. She was treated with D10. And again with an amp of D50 in the ED. Patient was unresponsive upon presentation to the ED. He was given Narcan in the ED which reportedly had a positive effect and the patient began speaking, however incoherently. She once again became obtunded with a significant decrease in her SPO2. An ABG was drawn which showed a pH of 6.74, CO2: 44.5, PaO2 81.9, HCO3: 5.9. Ammonia level was 471.9. AST and ALT were also significantly elevated. At this time I was called down to the emergency department to evaluate this patient. We immediately intubated. Patient had significant vomiting during intubation and may have aspirated. Her blood pressure dropped significantly and so a triple-lumen central catheter was placed in her right IJ for vasoactive medications should they be required in the near future. She was admitted to the intensive care unit for respiratory failure and significant metabolic derangement including liver disease. History obtained from:: Chart review. - Diagnosis/Plan (1) Respiratory failure Qualifiers: Chronicity: acute Respiratory failure complication: hypoxia Qualified Code(s): J96.01 - Acute respiratory failure with hypoxia Is this a current diagnosis for this admission?: Yes Plan: Although this patient did have multiple episodes of hypoxemia, it is possible that her main cause of respiratory failure is due to a significant metabolic demand driving her pH to 6.74 and her bicarb to 5.9. Continue current vent settings for now and obtain an ABG 30 minutes after arrival to the intensive care unit. Adjust respiratory rate as needed to maintain adequate pH. Wean FiO2 to maintain SPO2 88 to 95%. Check CXR in a.m. to evaluate for possible aspiration pneumonia. (2) Abnormal LFTs (liver function tests) Is this a current diagnosis for this admission?: Yes Plan: Patient has a history of hepatitis C. It is uncertain whether her elevated liver enzymes are acute versus chronic. (3) History of intravenous drug abuse Is this a current diagnosis for this admission?: Yes Plan: Patient seemed to respond with Narcan earlier in the ED. We will be keeping her sedated for now due to her need for ongoing ventilator support. (4) Hyperammonemia Is this a current diagnosis for this admission?: Yes Plan: Likely secondary to liver failure. Start lactulose to assist with lowering ammonia levels. Frequent neurochecks. (5) Hypotension Qualifiers: Hypotension type: hypotension due to hypovolemia Qualified Code(s): I95.89 - Other hypotension; E86.1 - Hypovolemia Is this a current diagnosis for this admission?: Yes Plan: Hypotension is likely secondary to hypovolemia she also had an episode of hypotension following intubation which may be induction related. Despite being in Trendelenburg position during placement of right IJ TLC, her right IJ appeared very small and easily collapsible on ultrasound. Continue IV fluid volume resuscitation. Past Medical History GI Medical History: Reports: Hepatitis Psychiatric Medical History: Reports: Substance Abuse, Tobacco Dependency Infectious Medical History: Reports: Hepatitis C Past Surgical History Past Surgical History: Reports: Orthopedic Surgery - left hip x2 replacement Social/Family History - Social History Lives with: Other - Remain Smoking Status: Current Every Day Smoker Drugs: Heroin - Medication/Allergies Home Medications: Sulfamethoxazole/Trimethoprim [Bactrim Ds Tablet] 1 each PO BID 7 Days #14 tablet 02/27/19 Hydrocodone/Acetaminophen [[place] 5-325 mg Tablet] 1 tab PO Q6 PRN #6 tablet 12/07/19 Allergies/Adverse Reactions: No Known Allergies Allergy (Verified 12/07/19 18:34) Review of Systems ROS unobtainable: Due to endotracheal tube Physical Exam General appearance: PRESENT: morbidly obese, severe distress Head exam: PRESENT: atraumatic, normocephalic Eye exam: PRESENT: conjunctival injection, scleral icterus Ear exam: PRESENT: normal external ear exam Mouth exam: PRESENT: moist Teeth exam: PRESENT: edentulous Throat exam: PRESENT: tonsillar erythema Neck exam: PRESENT: full ROM Respiratory exam: PRESENT: rhonchi, symmetrical, tachypnea Cardiovascular exam: PRESENT: RRR Pulses: PRESENT: normal carotid pulses, normal radial pulses Vascular exam: PRESENT: normal capillary refill, pallor GI/Abdominal exam: PRESENT: hyperactive bowel sounds, soft. ABSENT: tenderness Musculoskeletal exam: PRESENT: full ROM, normal inspection Neurological exam: PRESENT: altered, CN II-XII grossly intact Skin exam: PRESENT: jaundice, pallor Tubes/Lines: PRESENT: Endotracheal Tube, Central Line, Nasogastic Tube Laboratory/Radiographs Laboratory Results: 06/18/20 00:37 06/18/20 00:37 06/18/20 06/18/20 06/18/20 00:37 00:37 00:37 WBC 20.7 H RBC 3.41 L Hgb 11.8 L Hct 40.2 MCV 118 H MCH 34.5 H MCHC 29.3 L RDW 17.6 H Plt Count 67 L Seg Neutrophils % Not Reportable Carbonic Acid HCO3/H2CO3 Ratio ABG pH ABG pCO2 ABG pO2 ABG HCO3 ABG O2 Saturation ABG Base Excess FiO2 Sodium 136.0 L Potassium 5.9 H Chloride 101 Carbon Dioxide 7 L* Anion Gap 28 H BUN 37 H Creatinine 4.42 H Est GFR ( Amer) 12 L Glucose 48 L Calcium 9.1 Total Bilirubin 6.1 H AST 559 H Alkaline Phosphatase 315 H Ammonia 471.7 H Total Protein 6.3 Albumin 2.2 L Lipase Urine Color Urine Appearance Urine pH Ur Specific [place] Urine Protein Urine Glucose (UA) Urine Ketones Urine Blood Urine RBC (Auto) 06/18/20 06/18/20 06/18/20 00:37 00:45 01:20 WBC RBC Hgb Hct MCV MCH MCHC RDW Plt Count Seg Neutrophils % Carbonic Acid 1.34 HCO3/H2CO3 Ratio 4:1 ABG pH 6.74 L* ABG pCO2 44.5 ABG pO2 81.9 ABG HCO3 5.9 L ABG O2 Saturation 78.8 L ABG Base Excess -29.0 FiO2 100% Sodium Potassium Chloride Carbon Dioxide Anion Gap BUN Creatinine Est GFR ( Amer) Glucose Calcium Total Bilirubin AST Alkaline Phosphatase Ammonia Total Protein Albumin Lipase 102.1 Urine Color Cancelled Urine Appearance Cancelled Urine pH Cancelled Ur Specific [place] Cancelled Urine Protein Cancelled Urine Glucose (UA) Cancelled Urine Ketones Cancelled Urine Blood Cancelled Urine RBC (Auto) Cancelled 06/18/20 00:37 Troponin I 0.037 Impressions: Chest X-Ray 06/18/20 01:05 IMPRESSION: Bilateral edema and/or pneumonia, differential diagnosis would include viral infections. All labs, radiographs, diagnostic studies and EKGs were personally reviewed: Yes In addition, reports of radiographic and diagnostic studies were read: Yes Critical Time Critical Time (minutes): 75 -: The care of a critically ill patient is dynamic. This note represents a static moment in the admission process. Orders and treatments may be given simultaneously and urgently, and time is not sales solutions representative of the treatment pr ocess. This patient requires Critical Care secondary to life threatening organ or limb dysfunction. Without Critical Care services, the patient is at risk for increased mortality and morbidity.
[2020-06-18] MEDS ORDERED: MIDAZOLAM 2 MG/2 ML INJ IV ONE (05:22)
[2020-06-18] MEDS ORDERED: NOREPINEPHRINE BITARTRATE INJ/PF 4 MG/4 ML SDV IV ONE ×2 (05:27→11:29)
[2020-06-18] MEDS ORDERED: RINGERS SOLUTION,LACTATED 1,000 ML IV ONE (06:12)
[2020-06-18] MEDS ORDERED: DEXTROSE 5%-WATER 250 ML with NOREPINEPHRINE BITARTRATE 4 MG IV PRN ×4 (06:13→10:48)
[2020-06-18 07:29] LABS: ALBUMIN 1.6 g/dL (3.5-5.0); ALKALINE PHOSPHATASE 382 U/L (38-126); BILIRUBIN,DIRECT 3.4 mg/dL (0.0-0.4); BILIRUBIN,TOTAL 4.5 mg/dL (0.2-1.3); BLOOD UREA NITROGEN 35 mg/dL (7-20); CALCIUM 7.7 mg/dL (8.4-10.2); GLUCOSE 146 mg/dL (75-110); TOTAL PROTEIN 4.8 g/dL (6.3-8.2)
[2020-06-18 07:34] LABS: CHLORIDE 101 mmol/L (98-107)
[2020-06-18 07:57] LABS: ASPARTATE AMINO TRANSFERASE 1868 U/L (14-36)
[2020-06-18 08:00] LABS: CARBON DIOXIDE < 5 mmol/L (22-30); POTASSIUM 6.4 mmol/L (3.6-5.0)
[2020-06-18 08:10] LABS: ALCOHOL < 10 mg/dL (NONE DETECTED)
[2020-06-18] MEDS ORDERED: MIDAZOLAM HCL 50 MG/100 ML RTUINJ ONE (08:12)
[2020-06-18] MEDS ORDERED: SODIUM BICARBONATE 8.4% INJ 50 MEQ/50 ML DISP.SYRIN ONE ×3 (08:12→17:56)
--- NOTE | 2020-06-18 08:14 | RADIOLOGY REPORT (SQ) ---
EXAM DESCRIPTION: KUB/ABDOMEN (SINGLE VIEW) IMAGES COMPLETED DATE/TIME: 06/18/2020 7:35 am REASON FOR STUDY: Check Placement of NG Tube COMPARISON: None. NUMBER OF VIEWS: One view. TECHNIQUE: Supine radiographic image of the abdomen acquired. LIMITATIONS: None. FINDINGS: BOWEL GAS PATTERN: Mild small bowel dilation. CALCIFICATIONS: No suspicious calcifications. SOFT TISSUES: No gross mass or suggestion of organomegaly. HARDWARE: Nasogastric tube, tip in the upper stomach. BONES: No acute fracture. No worrisome bone lesions. OTHER: No other significant finding. IMPRESSION: NASOGASTRIC TUBE, TIP IN THE UPPER STOMACH. MILD SMALL BOWEL DILATION. TECHNICAL DOCUMENTATION: JOB ID: [id number] 2010 [employer] All Rights Reserved Reading location - IP/workstation name: [email or web address]
[2020-06-18] MEDS ORDERED: RINGERS SOLUTION,LACTATED 500 ML IV ONE ×2 (08:30→10:00)
[2020-06-18] MEDS: HEPARIN SOD (PORCINE) 5,000 UNIT/ML 1 ML VIAL SUBCUT SCH ×2 (09:08→15:40)
[2020-06-18 09:19] LABS: MEAN CORPUSCULAR HEMOGLOBIN 34.8 pg (27.0-33.4); MEAN CORPUSCULAR HGB CONC 29.9 g/dL (32.0-36.0); RED BLOOD COUNT 2.66 10^6/uL (3.72-5.28); RED CELL DISTRIBUTION WIDTH 17.7 % (11.5-14.0); WHITE BLOOD COUNT 22.4 10^3/uL (4.0-10.5)
[2020-06-18 09:50] LABS: HEMOGLOBIN 9.3 g/dL (12.0-15.5); MEAN CORPUSCULAR VOLUME 117 fl (80-97)
[2020-06-18] MEDS ORDERED: VANCOMYCIN HCL INJ 1000 MG VIAL IV ONE (09:55)
[2020-06-18 09:58] LABS: PLATELET COUNT 38 10^3/uL (150-450)
[2020-06-18 09:58] LABS: ARTERIAL BLOOD BASE EXCESS -23.7 mmol/L; ARTERIAL BLOOD H2CO3 0.88 mmol/L (1.05-1.35); ARTERIAL BLOOD HCO3 6.7 mmol/L (20-24); ARTERIAL BLOOD O2 SATURATION 90.9 % (94-98); ARTERIAL BLOOD PCO2 29.4 mmHg (35-45); ARTERIAL BLOOD PO2 88.9 mmHg (80-100); ARTERIAL BLOOD TOTAL CO2 7.6 mmol/L (21-25)
[2020-06-18 10:00] LABS: ARTERIAL BLOOD FIO2 100%
[2020-06-18] MEDS ORDERED: FAMOTIDINE INJ/PF 20 MG/2 ML SDV IV SCH (10:00)
[2020-06-18] MEDS ORDERED: PIPERACILLIN/TAZOBACTAM 3.375 GM VIAL IV SCH (10:00)
[2020-06-18 10:01] LABS: ARTERIAL BLOOD PH 6.97 (7.35-7.45)
[2020-06-18] MEDS ORDERED: DEXTROSE 5%-WATER 1000 ML 1,000 ML with SODIUM BICARBONATE 150 MEQ IV PRN ×2 (10:06)
[2020-06-18] MEDS ORDERED: SODIUM POLYSTYRENE SULFONATE 15 GM/60 ML PO ONE (10:30)
[2020-06-18] MEDS ORDERED: SUCCINYLCHOLINE CHLORIDE INJ 200 MG/10 ML VIAL ONE (10:56)
[2020-06-18] MEDS ORDERED: VANCOMYCIN HCL INJ 500 MG VIAL IV ONE (11:05)
[2020-06-18] MEDS ORDERED: VASOPRESSIN INJ 20 UNIT/1 ML VIAL ONE (11:29)
[2020-06-18] MEDS: DEXTROSE 5%-WATER 250 ML with VASOPRESSIN 100 UNIT IV PRN ×2 (11:29)
[2020-06-18] MEDS: DEXTROSE 5%-WATER 250 ML with NOREPINEPHRINE BITARTRATE 8 MG IV PRN ×4 (11:29→15:56)
[2020-06-18] MEDS ORDERED: MIDAZOLAM HCL 50 MG/100 ML RTUINJ IV PRN (11:58)
[2020-06-18] MEDS ORDERED: PIPERACILLIN SODIUM/TAZOBACTAM 3.375 GM in NORMAL SALINE 100 ML IV SCH (12:00)
[2020-06-18] MEDS ORDERED: VANCOMYCIN HCL 1,500 MG in DEXTROSE 5%-WATER 250 ML IV ONE (12:30)
[2020-06-18] MEDS: ALBUMIN HUMAN 12.5 GM/50 ML RTUINJ IV SCH ×2 (12:43→12:52)
[2020-06-18] MEDS ORDERED: VANCOMYCIN HCL 1,000 MG in DEXTROSE 5%-WATER 250 ML IV SCH (13:00)
--- NOTE | 2020-06-18 13:59 | PDOC CRITICAL CARE PROG REPORT ---
General Date:: 06/18/20 ICU Day:: 2 Ventilator Day:: 2 Hospital Day:: 2 Resuscitation Status: Full Code Events in the past 12 to 24 Hours:: The patient was asmitte overnight. When she presented she was hypoglcemic. Her mental status deteriorated during thehospitalization to the point where she required intubnbationand mechanical ventilation. WWhe I happened upon her this AM she was cold and profoundly acidotic. She beame profoundly shocky depsite vigorous fluid resuscitation. Reason for ICU Addmission:: Acute respiratory failure Physical Exam Vital Signs: Temp Pulse Resp BP Pulse Ox 96.1 F L 92 37 H 86/56 L 98 06/18/20 08:31 06/18/20 06:39 06/18/20 06:39 06/18/20 06:39 06/18/20 08:59 Intake & Output 06/17/20 06/18/20 06/19/20 06:59 06:59 06:59 Intake Total 1001 1206 Output Total 10 15 Balance 991 1191 Weight 110.5 kg Weight/Height Weight 110.5 kg Height 5 ft 5 in General appearance: PRESENT: severe distress, other Head exam: PRESENT: atraumatic, normocephalic Eye exam: PRESENT: other - Her pupils are reactive. there is slight anisocoria with a right pupil f 3mm and left of 2mm. Mouth exam: PRESENT: neck supple Neck exam: ABSENT: JVD, meningismus, thyromegaly Cardiovascular exam: PRESENT: irregular rhythm Pulses: PRESENT: normal femoral pulses GI/Abdominal exam: PRESENT: diminished bowel sounds. ABSENT: organolmegaly Extremities exam: PRESENT: other - The patient has bilateral venous stasi changes. her extremities are cold and her skinis mottled. ABSENT: calf tenderness Neurological exam: PRESENT: normal gait, other - The patientis comatose on the ventilator Laboratory/Radiographs Laboratory Results: 06/18/20 09:00 06/18/20 06:50 06/18/20 06/18/20 06/18/20 00:37 00:37 00:37 WBC 20.7 H RBC 3.41 L Hgb 11.8 L Hct 40.2 MCV 118 H MCH 34.5 H MCHC 29.3 L RDW 17.6 H Plt Count 67 L Seg Neutrophils % Not Reportable Carbonic Acid HCO3/H2CO3 Ratio ABG pH ABG pCO2 ABG pO2 ABG HCO3 ABG O2 Saturation ABG Base Excess FiO2 Sodium 136.0 L Potassium 5.9 H Chloride 101 Carbon Dioxide 7 L* Anion Gap 28 H BUN 37 H Creatinine 4.42 H Est GFR ( Amer) 12 L Glucose 48 L Calcium 9.1 Magnesium Total Bilirubin 6.1 H AST 559 H Alkaline Phosphatase 315 H Ammonia 471.7 H Total Protein 6.3 Albumin 2.2 L Lipase Urine Color Urine Appearance Urine pH Ur Specific Industry Urine Protein Urine Glucose (UA) Urine Ketones Urine Blood Urine RBC (Auto) 06/18/20 06/18/20 06/18/20 00:37 00:45 01:20 WBC RBC Hgb Hct MCV MCH MCHC RDW Plt Count Seg Neutrophils % Carbonic Acid 1.34 HCO3/H2CO3 Ratio 4:1 ABG pH 6.74 L* ABG pCO2 44.5 ABG pO2 81.9 ABG HCO3 5.9 L ABG O2 Saturation 78.8 L ABG Base Excess -29.0 FiO2 100% Sodium Potassium Chloride Carbon Dioxide Anion Gap BUN Creatinine Est GFR ( Amer) Glucose Calcium Magnesium Total Bilirubin AST Alkaline Phosphatase Ammonia Total Protein Albumin Lipase 102.1 Urine Color Cancelled Urine Appearance Cancelled Urine pH Cancelled Ur Specific Industry Cancelled Urine Protein Cancelled Urine Glucose (UA) Cancelled Urine Ketones Cancelled Urine Blood Cancelled Urine RBC (Auto) Cancelled 06/18/20 06/18/20 06/18/20 06:50 09:00 09:00 WBC 22.4 H RBC 2.66 L Hgb 9.3 L D Hct 31.0 L MCV 117 H MCH 34.8 H MCHC 29.9 L RDW 17.7 H Plt Count 38 L Seg Neutrophils % Carbonic Acid HCO3/H2CO3 Ratio ABG pH ABG pCO2 ABG pO2 ABG HCO3 ABG O2 Saturation ABG Base Excess FiO2 Sodium 134.9 L Potassium 6.4 H* Chloride 101 Carbon Dioxide < 5 L* Anion Gap Not Reportable BUN 35 H Creatinine 4.35 H Est GFR ( Amer) 12 L Glucose 146 H Calcium 7.7 L Magnesium 2.5 H Total Bilirubin 4.5 H AST 1868 H Alkaline Phosphatase 382 H Ammonia 230.1 H Total Protein 4.8 L Albumin 1.6 L Lipase Urine Color Urine Appearance Urine pH Ur Specific Industry Urine Protein Urine Glucose (UA) Urine Ketones Urine Blood Urine RBC (Auto) 06/18/20 09:45 WBC RBC Hgb Hct MCV MCH MCHC RDW Plt Count Seg Neutrophils % Carbonic Acid 0.88 L HCO3/H2CO3 Ratio 7:1 ABG pH 6.97 L* ABG pCO2 29.4 L ABG pO2 88.9 ABG HCO3 6.7 L ABG O2 Saturation 90.9 L ABG Base Excess -23.7 FiO2 100% Sodium Potassium Chloride Carbon Dioxide Anion Gap BUN Creatinine Est GFR ( Amer) Glucose Calcium Magnesium Total Bilirubin AST Alkaline Phosphatase Ammonia Total Protein Albumin Lipase Urine Color Urine Appearance Urine pH Ur Specific Industry Urine Protein Urine Glucose (UA) Urine Ketones Urine Blood Urine RBC (Auto) 06/18/20 06/18/20 00:37 09:00 Troponin I 0.037 NT-Pro-B Natriuret Pep 8760 H Impressions: Chest X-Ray 06/18/20 01:05 IMPRESSION: Bilateral edema and/or pneumonia, differential diagnosis would include viral infections. KUB X-Ray 06/18/20 04:07 IMPRESSION: NASOGASTRIC TUBE, TIP IN THE UPPER STOMACH. MILD SMALL BOWEL DILATION. Assessment and Plan - Diagnosis (1) Acute liver failure Is this a current diagnosis for this admission?: Yes Plan: The patient has stigmata of acute hepatic failure. her blood sugar was very low. Her LFTs are moderately elevated Her platlets are quite low. Bilrubin was 6 her ammonia level was 471. her tylenol level was low. The etiolgy of her liver failure is unclear. However, i have been told thepatient has chronic hepatitis C. (2) Acidosis, metabolic Is this a current diagnosis for this admission?: Yes Plan: The patient presented with a profound AG acidosis. The etiology is likely due to profound ciculatory shock and renal failure. The patient was given multiple amps of boicarb and started on a bicarb infusion. (3) Acute respiratory failure Is this a current diagnosis for this admission?: Yes Plan: The poatient required intubation for profoiound alter nmental status and severe acidosis. She may have aspirated as well mduring the intubation. (4) Shock circulatory Is this a current diagnosis for this admission?: Yes Plan: The patient is inprofound circulatory shock which I beleieve is due to sepsis. WE do not know of prvious cardiac disease. (5) Acute kidney failure Is this a current diagnosis for this admission?: Yes Plan: The patient presents with acute renal failure. Admission creat was 4.42. As of 05/16 her creatinine was 0.84. The patient is essentially anuric presently. She has a severe acidosis and hyperkalemia. If se h were to survive this acute insult she will need dialysis Plan Summary: The patient has profund multisystem abnormalities. She remains inprofound shock and acidosis. I do not think she will survive more than several hours inher preent condition. Unfortunately, robert patient has been estranged form her family so we do not have a contact peros other than a roomate. Critical Time Critical Time (minutes): 120 Level of Care: ICU -: 1. The care of a critical patient is a dynamic process. This note is a r epresentative synopsis but static in nature. The timeframe for treatments given in order is not necessarily the actual time these treatments may have been done. 2. This patient requires critical care secondary to ongoing requirements for therapy not offered or safe outside the critical care environment. Transfer to a lower level of care will result in altered life or limb morbidity and mortali ty. 3. Multidisciplinary rounds completed. 4. ABCDE bundle addressed.
[2020-06-18 15:35] LABS: ARTERIAL BLOOD BASE EXCESS -26.5 mmol/L; ARTERIAL BLOOD FIO2 100%; ARTERIAL BLOOD H2CO3 1.07 mmol/L (1.05-1.35); ARTERIAL BLOOD HCO3 5.8 mmol/L (20-24); ARTERIAL BLOOD O2 SATURATION 77.1 % (94-98); ARTERIAL BLOOD PCO2 35.7 mmHg (35-45); ARTERIAL BLOOD TOTAL CO2 6.9 mmol/L (21-25)
[2020-06-18 15:37] LABS: ARTERIAL BLOOD PH 6.83 (7.35-7.45)
[2020-06-18 15:53] LABS: BLOOD UREA NITROGEN 31 mg/dL (7-20); CALCIUM 7.3 mg/dL (8.4-10.2); CHLORIDE 96 mmol/L (98-107); GLUCOSE 96 mg/dL (75-110)
[2020-06-18 16:08] LABS: CARBON DIOXIDE < 5 mmol/L (22-30); POTASSIUM 7.3 mmol/L (3.6-5.0)
[2020-06-18 16:37] VITALS: BP 66/27
--- NOTE | 2020-06-18 18:09 | PDOC DISCHARGE SUMMARY ---
Impression - Admit/DC Date/PCP Admission Date/Primary Care Provider: 06/18/20 03:36 CLIFF MCKEE MD Discharge Date: 06/18/20 - Discharge Diagnosis (1) Acute liver failure Is this a current diagnosis for this admission?: Yes (2) Acidosis, metabolic Is this a current diagnosis for this admission?: Yes (3) Acute respiratory failure Is this a current diagnosis for this admission?: Yes (4) Shock circulatory Is this a current diagnosis for this admission?: Yes (5) Acute kidney failure Is this a current diagnosis for this admission?: Yes - Additional Information Resuscitation Status: Full Code Referrals: CLIFF MCKEE MD [Primary Care Provider] - Follow up as needed Home Medications: Hydrocodone/Acetaminophen [[place] 7.5-325 mg Tablet] 1 tab PO DAILYP PRN 06/18/20 Ibuprofen [Motrin 800 mg Tablet] 1 tab PO Q8HP PRN 06/18/20 History of Present Illiness History of Present Illness: ABIEL BELTRÁN is a 64 year old female Hospital Course Hospital Course: 06/18 8:02 PM The patient sustained a cardiac arrest. it was anticipated after inexorable decline since admisssion. the patient has had mutli-organ failure. She has remaned in intractablke shock much of the day. She has been severely acidotic and hyperkalemic. Wew attmepted to resucitate thepatient but she wdid not develop anative rhythm or BP. The code was ended after about 12 minutes of what appears to be an unsuccesfulresuscitation. WEe will inform her roomate. there is apparently no close family contacts to inform. Physical Exam Vital Signs: Temp Pulse Resp BP Pulse Ox 96.1 F L 92 24 H 66/27 L 11 L 06/18/20 08:31 06/18/20 06:39 06/18/20 16:31 06/18/20 16:31 06/18/20 15:24 Intake & Output 06/17/20 06/18/20 06/19/20 06:59 06:59 06:59 Intake Total 1001 1466 Output Total 10 30 Balance 991 1436 Weight 110.5 kg Results Laboratory Results: WBC 22.4 10^3/uL (4.0-10.5) H 06/18/20 09:00 RBC 2.66 10^6/uL (3.72-5.28) L 06/18/20 09:00 Hgb 9.3 g/dL (12.0-15.5) L D 06/18/20 09:00 Hct 31.0 % (36.0-47.0) L 06/18/20 09:00 MCV 117 fl (80-97) H 06/18/20 09:00 MCH 34.8 pg (27.0-33.4) H 06/18/20 09:00 MCHC 29.9 g/dL (32.0-36.0) L 06/18/20 09:00 RDW 17.7 % (11.5-14.0) H 06/18/20 09:00 Plt Count 38 10^3/uL (150-450) L 06/18/20 09:00 Lymph % (Auto) Not Reportable 06/18/20 00:37 Mcleod % (Auto) Not Reportable 06/18/20 00:37 Eos % (Auto) Not Reportable 06/18/20 00:37 Baso % (Auto) Not Reportable 06/18/20 00:37 Absolute Neuts (auto) Not Reportable 06/18/20 00:37 Absolute Lymphs (auto) Not Reportable 06/18/20 00:37 Absolute Monos (auto) Not Reportable 06/18/20 00:37 Absolute Eos (auto) Not Reportable 06/18/20 00:37 Absolute Basos (auto) Not Reportable 06/18/20 00:37 Total Counted 100 06/18/20 00:37 Seg Neutrophils % Not Reportable 06/18/20 00:37 Seg Neuts % (Manual) 75 % (42-78) 06/18/20 00:37 Band Neutrophils % 5 % (3-5) 06/18/20 00:37 Lymphocytes % (Manual) 13 % (13-45) 06/18/20 00:37 Monocytes % (Manual) 7 % (3-13) 06/18/20 00:37 Eosinophils % (Manual) 0 % (0-6) 06/18/20 00:37 Basophils % (Manual) 0 % (0-2) 06/18/20 00:37 Abs Neuts (Manual) 16.6 10^3/uL (1.7-8.2) H 06/18/20 00:37 Abs Lymphs (Manual) 2.7 10^3/uL (0.5-4.7) 06/18/20 00:37 Abs Monocytes (Manual) 1.4 10^3/uL (0.1-1.4) 06/18/20 00:37 Absolute Eos (Manual) 0.0 10^3/uL (0.0-0.6) 06/18/20 00:37 Abs Basophils (Manual) 0.0 10^3/uL (0.0-0.2) 06/18/20 00:37 Toxic Vacuolation PRESENT 06/18/20 00:37 Platelet Comment DECREASED 06/18/20 00:37 Polychromasia SLIGHT 06/18/20 00:37 Anisocytosis 1+ 06/18/20 00:37 Macrocytosis 3+ 06/18/20 00:37 Monika Cells 1+ 06/18/20 00:37 Carbonic Acid 1.07 mmol/L (1.05-1.35) 06/18/20 15:00 HCO3/H2CO3 Ratio 5:1 06/18/20 15:00 ABG pH 6.83 (7.35-7.45) L* 06/18/20 15:00 ABG pCO2 35.7 mmHg (35-45) 06/18/20 15:00 ABG pO2 72.0 mmHg (80-100) L 06/18/20 15:00 ABG HCO3 5.8 mmol/L (20-24) L 06/18/20 15:00 ABG Total CO2 6.9 mmol/L (21-25) L 06/18/20 15:00 ABG O2 Saturation 77.1 % (94-98) L 06/18/20 15:00 ABG Base Excess -26.5 mmol/L 06/18/20 15:00 FiO2 100% 06/18/20 15:00 Sodium 134.2 mmol/L (137-145) L 06/18/20 15:00 Potassium 7.3 mmol/L (3.6-5.0) H* 06/18/20 15:00 Chloride 96 mmol/L (98-107) L 06/18/20 15:00 Carbon Dioxide < 5 mmol/L (22-30) L* 06/18/20 15:00 Anion Gap Not Reportable 06/18/20 15:00 BUN 31 mg/dL (7-20) H 06/18/20 15:00 Creatinine 4.14 mg/dL (0.52-1.25) H 06/18/20 15:00 Est GFR ( Amer) 13 (>60) L 06/18/20 15:00 Est GFR (MDRD) Non-Af 11 (>60) L 06/18/20 15:00 Glucose 96 mg/dL (75-110) 06/18/20 15:00 POC Glucose 154 mg/dL (70-110) H 06/18/20 17:03 Calcium 7.3 mg/dL (8.4-10.2) L 06/18/20 15:00 Magnesium 2.5 mg/dL (1.6-2.3) H 06/18/20 06:50 Total Bilirubin 4.5 mg/dL (0.2-1.3) H 06/18/20 06:50 Direct Bilirubin 3.4 mg/dL (0.0-0.4) H 06/18/20 06:50 Neonat Total Bilirubin Not Reportable 06/18/20 06:50 Neonat Direct Bilirubin Not Reportable 06/18/20 06:50 Neonat Indirect Bili Not Reportable 06/18/20 06:50 AST 1868 U/L (14-36) H 06/18/20 06:50 ALT 242 U/L (<35) H 06/18/20 06:50 Alkaline Phosphatase 382 U/L (38-126) H 06/18/20 06:50 Ammonia 230.1 umol/L (9-33) H 06/18/20 09:00 Troponin I 0.037 ng/mL 06/18/20 00:37 NT-Pro-B Natriuret Pep 8760 pg/mL (<125) H 06/18/20 09:00 Total Protein 4.8 g/dL (6.3-8.2) L 06/18/20 06:50 Albumin 1.6 g/dL (3.5-5.0) L 06/18/20 06:50 Lipase 102.1 U/L (23-300) 06/18/20 00:37 Urine Color Cancelled 06/18/20 00:45 Urine Appearance Cancelled 06/18/20 00:45 Urine pH Cancelled 06/18/20 00:45 Ur Specific [place] Cancelled 06/18/20 00:45 Urine Protein Cancelled 06/18/20 00:45 Urine Glucose (UA) Cancelled 06/18/20 00:45 Urine Ketones Cancelled 06/18/20 00:45 Urine Blood Cancelled 06/18/20 00:45 Urine Nitrite (Reflex) Cancelled 06/18/20 00:45 Urine Bilirubin Cancelled 06/18/20 00:45 Urine Urobilinogen Cancelled 06/18/20 00:45 Leukocyte Esterase Rfl Cancelled 06/18/20 00:45 Urine RBC (Auto) Cancelled 06/18/20 00:45 U Hyaline Cast (Auto) Cancelled 06/18/20 00:45 Urine Bacteria (Auto) Cancelled 06/18/20 00:45 Urine Red Cell Clumps Cancelled 06/18/20 00:45 Urine WBC (Reflex) Cancelled 06/18/20 00:45 Urine WBC Clumps Cancelled 06/18/20 00:45 Squamous Epi Cells Auto Cancelled 06/18/20 00:45 U Non-Squamous Epis Auto Cancelled 06/18/20 00:45 Calcium Carbonate Cryst Cancelled 06/18/20 00:45 Calcium Phosphate Cryst Cancelled 06/18/20 00:45 Calcium Oxalate Cr Auto Cancelled 06/18/20 00:45 Leucine Crystals Cancelled 06/18/20 00:45 Cystine Crystals Cancelled 06/18/20 00:45 Uric Acid Cryst (Auto) Cancelled 06/18/20 00:45 Triple Phos Cryst (Auto) Cancelled 06/18/20 00:45 Tyrosine Crystals Cancelled 06/18/20 00:45 Amorphous Sediment Auto Cancelled 06/18/20 00:45 Cellular Casts Cancelled 06/18/20 00:45 Epithelial Casts (Auto) Cancelled 06/18/20 00:45 Fatty Casts Cancelled 06/18/20 00:45 Granular Casts (Auto) Cancelled 06/18/20 00:45 Waxy Casts (Auto) Cancelled 06/18/20 00:45 Broad Casts Cancelled 06/18/20 00:45 RBC Casts (Auto) Cancelled 06/18/20 00:45 WBC Casts (Auto) Cancelled 06/18/20 00:45 Urine Mucus (Auto) Cancelled 06/18/20 00:45 U Trichomonas (Auto) Cancelled 06/18/20 00:45 Ur Yeast w Hyphae Cancelled 06/18/20 00:45 Urine Yeast (Budding) Cancelled 06/18/20 00:45 Urine Ascorbic Acid Cancelled 06/18/20 00:45 Salicylates 1.6 mg/dL (2.0-20.0) L 06/18/20 00:37 Urine Opiates Screen UNCONFIRMED POSITIVE 06/18/20 00:45 Urine Methadone Screen NEGATIVE 06/18/20 00:45 Acetaminophen < 10 ug/mL (10-30) L 06/18/20 00:37 Ur Barbiturates Screen NEGATIVE 06/18/20 00:45 Ur Phencyclidine Scrn NEGATIVE 06/18/20 00:45 Ur Amphetamines Screen 06/18/20 00:45 U Benzodiazepines Scrn NEGATIVE 06/18/20 00:45 Urine Cocaine Screen NEGATIVE 06/18/20 00:45 U Marijuana (THC) Screen NEGATIVE 06/18/20 00:45 Serum Alcohol < 10 mg/dL (NONE DETECTED) 06/18/20 06:50 HIV 1&2 Antibody NEGATIVE (NEGATIVE) 06/18/20 06:50 06/18/20 06/18/20 00:37 09:00 Troponin I 0.037 NT-Pro-B Natriuret Pep 8760 H Impressions: Chest X-Ray 06/18/20 00:00 IMPRESSION: 1. Lines as described 2. Consider advancing the enteric tube at least 6 cm. Chest X-Ray 06/18/20 01:05 IMPRESSION: Bilateral edema and/or pneumonia, differential diagnosis would include viral infections. KUB X-Ray 06/18/20 04:07 IMPRESSION: NASOGASTRIC TUBE, TIP IN THE UPPER STOMACH. MILD SMALL BOWEL DILATION. Plan Critical Time: 15 Level of Care: ICU Stroke Is this a Stroke Patient?: No Acute Heart Failure Is this a Heart Failure Patient?: No
--- NOTE | 2020-06-18 21:06 | EKG REPORT ---
SEVERITY:- DEFECTIVE ECG - LOW VOLTAGE IN FRONTAL LEADS BORDERLINE T ABNORMALITIES, INFERIOR LEADS PROLONGED QT INTERVAL PROBABLE CHAOTIC ATRIAAAL PACEMAKER.BUT SIGGNIFICANT BASELINE ARTIFACT.REPEAT EKG : Confirmed by: Kimberly Hernandez MD 18-Jun-2020 21:05:21
[2020-06-18] MEDS ORDERED: SODIUM POLYSTYRENE SULFONATE 15 GM/60 ML PO SCH (22:00)
[2020-06-20 12:43] LABS: PATH REVIEW PATHOLOGIST REVIEWED
[2020-06-20 17:36] LABS: HEPATITS B SURFACE ANTIGEN Negative (Negative)
[2020-06-20 17:44] LABS: HEPATITIS C VIRUS ANTIBODY >11.0 s/co ratio (0.0-0.9)
== END 2020-06-18 19:15 | disposition left against medical advice (07) | DRG 871 ==
LOC: ER 00:27 → EH 03:36 → ICU 04:38
PROVIDERS: ADMIT Internal Medicine; ATTEND Internal Medicine
PROC: 0BH17EZ Insertion of Endotracheal Airway into Trachea, Via Natural or Artificial Opening (ICD-10-PCS; principal; 2020-06-18)
PROC: 5A1935Z Respiratory Ventilation, Less than 24 Consecutive Hours (ICD-10-PCS; 2020-06-18)
PROC: 02HV33Z Insertion of Infusion Device into Superior Vena Cava, Percutaneous Approach (ICD-10-PCS; 2020-06-18)
PROC: B548ZZA Ultrasonography of Superior Vena Cava, Guidance (ICD-10-PCS; 2020-06-18)
DX: A41.9 Sepsis, unspecified organism (principal); J96.01 Acute respiratory failure with hypoxia; K72.00 Acute and subacute hepatic failure without coma; E72.4 Disorders of ornithine metabolism; E87.2 Acidosis; N17.9 Acute kidney failure, unspecified; L97.909 Non-pressure chronic ulcer of unspecified part of unspecified lower leg with unspecified severity; F11.10 Opioid abuse, uncomplicated; E87.5 Hyperkalemia; I46.9 Cardiac arrest, cause unspecified; R57.0 Cardiogenic shock; I83.009 Varicose veins of unspecified lower extremity with ulcer of unspecified site; E86.1 Hypovolemia; E16.2 Hypoglycemia, unspecified; B18.2 Chronic viral hepatitis C; Z96.642 Presence of left artificial hip joint; F17.200 Nicotine dependence, unspecified, uncomplicated; E66.01 Morbid (severe) obesity due to excess calories; Y92.002 Bathroom of unspecified non-institutional (private) residence as the place of occurrence of the external cause
CPT/HCPCS: 31500; 36415; 36556; 71045; 74018; 80053; 80074; 80307; 82140; 82803; 82962; 83690; 83735; 83880; 84484; 85025; 86701; 87040; 87070; 87077; 87150; 87186; 92950; 93005; 93010; 94002; 96374; 96375; 99285; 99291; 99292; J0330; J2250; J2310; J2543; J2704; J3370; J3490; J7030; J7050; J7060; J7120; P9047; S0028